=== PATIENT | female | born 1995 | race Hispanic/Latino ===

== ENCOUNTER 2020-02-13 09:37 | Inpatient (IN) | payer BC, MEDICAID ==
[~2020-02-13] VITALS: Ht 149.9 cm; Wt 73.5 kg
[2020-02-13 10:23] VITALS: BP 103/61
[2020-02-13 10:27] LABS: APPEARANCE,URINE CLEAR (CLEAR); BILIRUBIN,URINE NEGATIVE (NEGATIVE); COLOR,URINE YELLOW (YELLOW); GLUCOSE, URINE (UA) NEGATIVE (NEGATIVE); KETONES,URINE NEGATIVE (NEGATIVE); LEUKOCYTE ESTERASE ,URINE NEGATIVE (NEGATIVE); NITRATE,URINE NEGATIVE (NEGATIVE); OCCULT BLOOD,URINE SMALL (NEGATIVE); PROTEIN,URINE TRACE mg/dL (NEGATIVE); UROBILINOGEN,URINE 0.2 mg/dL (0.2-1.0)
[2020-02-13] MEDS ORDERED: LACTATED RINGERS 1000ML 1,000 ML IV PRN (10:50)
[2020-02-13 10:54] LABS: RBC,URINE 0-1 /HPF (0-1)
[2020-02-13 10:55] LABS: BACTERIA,URINE Few /HPF (None Seen); MUCUS,URINE Moderate LPF (None Seen)
[2020-02-13 11:24] LABS: HEMATOCRIT 31.4 % (36-48); MEAN CORPUSCULAR HGB CONC 33.4 g/dL (32.0-36.0); MEAN CORPUSCULAR VOLUME 92.6 fL (79-99); PLATELET COUNT (AUTO) 139 K/uL (130-400); RED BLOOD CELL COUNT(AUTO) 3.39 MIL/uL (4.00-5.50); RED CELL DISTRIBUTION WIDTH 13.2 % (11.0-15.5); WHITE BLOOD COUNT (AUTO) 7.1 K/uL (4.8-10.8)
[2020-02-13] MEDS ORDERED: OXYTOCIN 10 USP UNITS/ML 20 UNIT in LACTATED RINGERS 1000ML 1,000 ML IV SCH (12:15)
[2020-02-13] MEDS ORDERED: OXYTOCIN-LR 20 UNITS/1000 ML 1,000 ML IV ONE (12:41)
[2020-02-13] MEDS ORDERED: EPHEDRINE SULFATE 50 MG/ML AMPULE IVP PRN (15:45)
[2020-02-13] MEDS ORDERED: BUTORPHANOL TARTRATE 2 MG/ML IVP PRN (15:45)
[2020-02-13] MEDS ORDERED: AMPICILLIN 2GM+NS 100ML 100 ML IV SCH (15:45)
[2020-02-13] MEDS ORDERED: ROPIVACAINE 0.2% 100ML VIAL 100 ML EP SCH (15:45)
[2020-02-13] MEDS ORDERED: LACTATED RINGERS 500 ML 500 ML IV PRN (15:45)
[2020-02-13] MEDS ORDERED: NALOXONE HCL 0.4 MG/1 ML ML IV PRN (15:45)
[2020-02-13] MEDS: AMPICILLIN 1GM+NS 50ML 50 ML IV SCH ×2 (20:00→23:59)
[2020-02-14] MEDS ORDERED: OXYTOCIN-LR 20 UNITS/1000 ML 1,000 ML IV ONE (03:26)
[2020-02-14] MEDS: AMPICILLIN 1GM+NS 50ML 50 ML IV SCH (03:35)
[2020-02-14] MEDS ORDERED: LIDOCAINE HCL 1% 20 ML VIAL INJ PRN (07:30)
[2020-02-14] MEDS ORDERED: MISOPROSTOL 200 MCG TABLET VG PRN (07:30)
[2020-02-14] MEDS ORDERED: METHYLERGONOVINE MALEATE 0.2 MG/1 ML ML IM PRN ×2 (07:30→16:15)
[2020-02-14 08:09] LABS: HEPATITIS Bs ANTIGEN SCREEN P Negative (Negative)
[2020-02-14] MEDS ORDERED: CEFAZOLIN SODIUM 1 GM VIAL ONE (14:35)
[2020-02-14] MEDS ORDERED: OXYTOCIN-LR 20 UNITS/1000 ML 2,000 ML IV ONE (14:35)
[2020-02-14] MEDS ORDERED: CALDOLOR 800MG+NS 250ML 250 ML IV ONE (14:35)
[2020-02-14] MEDS ORDERED: DURAMORPH PF1 MG/ML 10ML AMP IV ONE (15:01)
[2020-02-14] MEDS ORDERED: ONDANSETRON HCL 4 MG/2 ML VIAL ONE (15:05)
[2020-02-14] MEDS ORDERED: TRANEXAMIC ACID 1,000 MG in SODIUM CHLORIDE 0.9% 100 ML IV SCH (15:15)
[2020-02-14] MEDS ORDERED: EPHEDRINE SULFATE 50 MG/ML AMPULE ONE (15:17)
[2020-02-14] MEDS ORDERED: TRANEXAMIC ACID 1000MG/10ML ONE (15:26)
[2020-02-14] MEDS ORDERED: OXYTOCIN-LR 20 UNITS/1000 ML 1,000 ML IV PRN (16:15)
[2020-02-14] MEDS ORDERED: PROMETHAZINE HCL 25 MG/ML 1ML AMPULE IM PRN (16:15)
[2020-02-14] MEDS ORDERED: SODIUM CHLORIDE 0.9% 10 ML VIAL IVP PRN (16:15)
[2020-02-14] MEDS ORDERED: DEXTROSE 5 %-0.45 % NACL 1,000 ML IV PRN (16:15)
[2020-02-14] MEDS ORDERED: MEPERIDINE-PF 75 MG/ML SYG IM PRN (16:15)
[2020-02-14] MEDS ORDERED: ONDANSETRON HCL 4 MG/2 ML VIAL IVP PRN (17:15)
[2020-02-14] MEDS ORDERED: NALOXONE HCL 0.4 MG/1 ML ML IVP PRN ×3 (17:15)
[2020-02-14] MEDS ORDERED: DiphenhydrAMINE HCL 50 MG/ML VIAL IVP PRN (17:15)
[2020-02-14] MEDS ORDERED: EPHEDRINE SULFATE 50 MG/ML AMPULE IVP PRN (17:15)
[2020-02-14] MEDS ORDERED: LORATADINE 10 MG TABLET PO PRN (17:30)
[2020-02-14 18:13] VITALS: BP 145/89
[2020-02-14] MEDS ORDERED: DOCO200C5 PO (18:43)
[2020-02-14] MEDS ORDERED: FERS325 PO (18:43)
[2020-02-14 19:23] VITALS: BP 133/86
[2020-02-14 23:20] VITALS: BP 112/65
[2020-02-15] MEDS: CALDOLOR 800MG+NS 250ML 250 ML IV SCH ×2 (00:07→08:07)
[2020-02-15 03:25] VITALS: BP 115/71
--- NOTE | 2020-02-15 05:40 | NUR ---
LUZ RODRIGUEZ, PT. INST TO CALL FOR ASSIST BEFORE GETTING OUT OF BED; VERBALIZED UNDERSTANDING. CHEPE CARE DONE BY BOY AND ASSISTED PT TO CHAIR. Addendum: 02/15/20 at 0701 by YASMANY MENDOZA RN RN Amended: Links added.
[2020-02-15 07:09] LABS: HEMATOCRIT 27.7 % (36-48); MEAN CORPUSCULAR HEMOGLOBIN 31.1 pg (27.0-33.0); MEAN CORPUSCULAR HGB CONC 33.2 g/dL (32.0-36.0); MEAN CORPUSCULAR VOLUME 93.6 fL (79-99); PLATELET COUNT (AUTO) 93 K/uL (130-400); RED BLOOD CELL COUNT(AUTO) 2.96 MIL/uL (4.00-5.50); RED CELL DISTRIBUTION WIDTH 13.2 % (11.0-15.5); WHITE BLOOD COUNT (AUTO) 15.9 K/uL (4.8-10.8)
[2020-02-15] MEDS ORDERED: ACETAMINOPHEN-CODEINE 300/30MG TAB PO PRN (07:15)
[2020-02-15] MEDS ORDERED: IBUPROFEN 600 MG TABLET PO PRN (07:15)
[2020-02-15] MEDS ORDERED: ACETAMINOPHEN EXTRA STRENGTH 500 MG TABLET PO PRN (07:15)
[2020-02-15] MEDS ORDERED: HYDROCODONE/ACETAMINOPHEN 5/325 MG TAB PO PRN (07:15)
[2020-02-15] MEDS ORDERED: BISACODYL 10 MG SUPP.RECT RC PRN (07:15)
[2020-02-15] MEDS ORDERED: DIPH,PERTUSS(ACELL),TET VAC/PF 0.5 ML VIAL IM SCH (07:15)
[2020-02-15 07:39] VITALS: BP 98/63
[2020-02-15] MEDS: SIMETHICONE 80 MG TAB.CHEW PO PRN ×3 (08:07→17:06)
[2020-02-15] MEDS ORDERED: DOCUSATE SODIUM 100 MG CAP PO SCH (09:00)
--- NOTE | 2020-02-15 09:00 | NUR ---
DR. CARDOSO CALLED AND UPDATE ON PATIENT STATUS GIVEN. ORDER FOR DISCHARGE GIVEN ONCE PATIENT HAS VOIDED AND IS PASSING FLATUS AND PAIN IS CONTROLLED.
[2020-02-15 11:09] VITALS: BP 95/67
--- NOTE | 2020-02-15 15:00 | NUR ---
PATIENT UP AND VOIDED AFTER AMBULATING AND WAS ABLE TO HAVE A BM AND RETURNED SUPPOSITORY SINCE PATIENT NO LONGER NEEDED IT.
--- NOTE | 2020-02-15 15:50 | NUR ---
PATIENT WAS GIVEN DISCHARGE INSTRUCTIONS AND VERBALIZED UNDERSTANDING INSTRUCTIONS GIVEN. SCRIPT FOR PAIN MANAGEMENT AT HOME GIVEN AND INSTRUCTED ON DOSAGE AND FREQUENCY. PATIENT STABLE.
[2020-02-15 16:03] VITALS: BP 95/50
--- NOTE | 2020-02-15 18:50 | NUR ---
PATIENT WAS TAKE VIA W/C CARRYING BABY IN ARMS AND WERE BOTH DISCHARGED TO HER SIGNIFICANT OTHER. PATIENT STABLE AND DENIES PAIN. STATES FEELING MUCH BETTER AFTER HAVING A BOWEL MOVEMENT EARLIER.
== END 2020-02-15 18:50 | disposition home or self-care (01) | DRG 787 ==
LOC: OBSVTOIN 09:37 → LDH 09:37 → WSH 02-14 18:08
PROVIDERS: ADMIT Obstetrics & Gynecology; ATTEND Obstetrics & Gynecology
PROC: 3E0234Z Introduction of Serum, Toxoid and Vaccine into Muscle, Percutaneous Approach (ICD-10-PCS; 2020-02-14)
PROC: 10D00Z1 Extraction of Products of Conception, Low, Open Approach (ICD-10-PCS; principal; 2020-02-14 15:07)
DX: O32.4XX0 Maternal care for high head at term, not applicable or unspecified (principal); O72.1 Other immediate postpartum hemorrhage; O42.90 Premature rupture of membranes, unspecified as to length of time between rupture and onset of labor, unspecified weeks of gestation; O99.824 Streptococcus B carrier state complicating childbirth; O77.0 Labor and delivery complicated by meconium in amniotic fluid; Z23 Encounter for immunization; Z37.0 Single live birth; Z3A.39 39 weeks gestation of pregnancy
CPT/HCPCS: 36415; 59510; 76805; 81001; 85027; 86592; 86850; 86900; 86901; 87340; 90715; A4314; A4344; G0378; J0290; J0595; J0690; J1741; J2210; J2274; J2405; J2590; J2795; J3490; J7120